=== PATIENT | female | born 1970 | race Two or more races ===

== ENCOUNTER → 2021-03-12 | Day surgery (SDC) | payer OTHER | END | disposition home or self-care (01) | LOC: ADM 03-05 13:15 → AMB-ENDOS 09:55 | PROVIDERS: ATTEND Colon & Rectal Surgery | DX: D12.3 Benign neoplasm of transverse colon (principal); D12.4 Benign neoplasm of descending colon; D12.5 Benign neoplasm of sigmoid colon; K62.1 Rectal polyp; K64.1 Second degree hemorrhoids; Z20.822 Contact with and (suspected) exposure to COVID-19; Z12.11 Encounter for screening for malignant neoplasm of colon ==